=== PATIENT | female | born 1960 | race African-American/Black ===

== ENCOUNTER 2021-04-20 08:30 | Emergency (ER) | payer OTHER, MEDICAID ==
[~2021-04-20] VITALS: Ht 162.6 cm; Wt 97.3 kg
--- NOTE | 2021-04-20 09:21 | PHYS DOC ---
General Adult EDM: Chief Complaint: CHEST PAIN HPI: HPI: Patient is a 60 year old female who presents to the emergency department with chief complaint of intermittent sternal chest pains for the past week. Patient describes pains as [id number] sensation that lasts only a few seconds then goes away. Patient notices mostly in the morning time. Patient reports last chest pain episode was this morning at approximately 3 AM she was watching television. Has not had a recurrence of chest pain episode since 3 AM. Patient denies shortness of breath, chest palpitations, diaphoretic episodes, nausea. Patient denies dizziness, syncopal or near syncopal episodes. Patient does rep ort a past medical history of hypertension and epilepsy. Reports taking hydrochlorothiazide, carvedilol, losartan, amlodipine, Tegretol, phenytoin, patient states she has not taken any medications today prior to arrival to the emergency department. Patient reports a past surgical history of cholecystectomy and hysterectomy 1982. Patient states she sees Dr. Glover at [facility], has an appointment next Tuesday. Patient reports she is a former smoker quit 8 years ago, drinks occasionally stating she had 1 glass of wine last night, denies illicit drug use, denies IV drug use history patient denies other physical complaints or physical concerns. Review of Systems: Review of Systems: 14 body systems of review of systems have been reviewed. See HPI for pertinent positives and negative responses, otherwise all other systems are negative, nonp ertinent or noncontributory. Constitutional: Negative except as outlined in HPI above. Skin: Negative except as outlined in HPI above. Eyes: Negative except as outlined in HPI above. HENT: Negative except as outlined in HPI above. Respiratory: Negative except as outlined in HPI above. Cardiovascular: Negative except as outlined in HPI above. GI: Negative except as outlined in HPI above. : Negative except as outlined in HPI above. Musculoskeletal: Negative except as outlined in HPI above. Integument: Negative except as outlined in HPI above. Neurologic: Negative except as outlined in HPI above. Endocrine: Negative except as outlined in HPI above. Lymphatic: Negative except as outlined in HPI above. Psychiatric: Negative except as outlined in HPI above. Heart Score: C/O Chest Pain: Yes HEART Score for Chest Pain: HEART Score for Chest Pain Response (Comments) Value History Slighlty/Non-Suspicious 0 ECG Normal 0 Age >45 - < 65 1 Risk Factors 1 or 2 Risk Factors 1 Troponin < Normal Limit 0 Total 2 Risk Factors: Risk Factors: DM, Current or recent (<one month) smoker, HTN, HLP, family history of CAD, obesity. Risk Scores: Score 0 - 3: 2.5% MACE over next 6 weeks - Discharge Home Score 4 - 6: 20.3% MACE over next 6 weeks - Admit for Clinical Observation Score 7 - 10: 72.7% MACE over next 6 weeks - Early Invasive Strategies Current Medications: Patient reports home medications of Tegretol 200 mg, phenytoin 100 mg, hydrochlorothiazide 25 mg, carvedilol 18.75 mg, losartan 100 mg, amlodipine 10 mg. Allergies: Allergies: Allergies Coded Allergies Type Severity Reaction Last Updated Verified No Known Drug Allergies 04/20/21 No Physical Exam: PE: Constitutional: Well developed, well nourished, no acute distress, non-toxic appearance. 60-year-old female in no apparent distress. HENT: Normocephalic, atraumatic. Oropharynx moist, pink, no deep tissue infecti ous process appreciated, right TM intact within normal limits, left TM unable to visualize, wax impaction. No lymphadenopathy of the head or neck appreciated. Eyes: Conjunctiva normal, no discharge. Neck: Normal range of motion, no stridor. Cardiovascular: No cyanosis appreciated, distal cap refill less than 2 seconds. Heart sounds S1-S2 to auscultation, regular rate and rhythm. Lungs & Thorax: Patient is in no respiratory distress, no audible adventitious lung sounds appreciated. Lung sounds clear to auscultation all lung marion, normal work of breathing. Abdomen: Nontender, no abnormalities noted. Abdomen soft, round, patient is obese, no abnormal skin discoloration appreciated, old surgical scars. Skin: Warm, dry, no erythema, no rash. Back: No tenderness, no deformities. Extremities: No tenderness, no cyanosis, no clubbing, ROM intact, no edema. Neurologic: Alert and oriented X 3, normal motor function, normal sensory function, no focal deficits noted. Psychologic: Affect normal, judgement normal, mood normal. Current Patient Data: Labs: Laboratory Tests Test 04/20/21 09:13 White Blood Count 8.4 x10^3/uL Red Blood Count 4.42 x10^6/uL Hemoglobin 13.7 g/dL Hematocrit 40.9 % Mean Corpuscular Volume 93 fL Mean Corpuscular Hemoglobin 31 pg Mean Corpuscular Hemoglobin Concent 33 g/dL Red Cell Distribution Width 15.4 % Platelet Count 270 x10^3/uL Neutrophils (%) (Auto) 65 % Lymphocytes (%) (Auto) 27 % Monocytes (%) (Auto) 7 % Eosinophils (%) (Auto) 0 % Basophils (%) (Auto) 1 % Neutrophils # (Auto) 5.4 x10^3/uL Lymphocytes # (Auto) 2.3 x10^3/uL Monocytes # (Auto) 0.6 x10^3/uL Eosinophils # (Auto) 0.0 x10^3/uL Basophils # (Auto) 0.0 x10^3/uL Sodium Level 141 mmol/L Potassium Level 3.3 mmol/L Chloride Level 102 mmol/L Carbon Dioxide Level 28 mmol/L Anion Gap 11 Blood Urea Nitrogen 14 mg/dL Creatinine 0.7 mg/dL Estimated GFR (Cockcroft-Gault) 103.3 BUN/Creatinine Ratio 20 Glucose Level 83 mg/dL Calcium Level 9.2 mg/dL Total Bilirubin 0.2 mg/dL Aspartate Amino Transf (AST/SGOT) 30 U/L Alanine Aminotransferase (ALT/SGPT) 58 U/L Alkaline Phosphatase 104 U/L Troponin I High Sensitivity 5 ng/L [id number] Natriuretic Peptide 162 pg/mL Total Protein 8.6 g/dL Albumin 3.8 g/dL Albumin/Globulin Ratio 0.8 Lipase 38 U/L Current Medications Medications (Trade) Dose Ordered Sig/Harish Route PRN Reason Start Time Stop Time Status Last Admin Dose Admin Hydralazine HCl (Apresoline Inj) 10 mg 1X ONCE IVP 04/20/21 09:30 04/20/21 09:31 DC 04/20/21 09:37 Potassium Chloride (Klor-Con) 20 meq 1X ONCE PO 04/20/21 10:00 04/20/21 10:02 DC 04/20/21 10:08 EKG: EKG: EKG performed at 0 844 by ED nursing staff shows a normal sinus rhythm without other ectopy, AK 0.124, QTc interval 0.438, no acute STEMI, no ACS, no acute ischemia appreciated, EKG interpreted by ED attending physician Dr. Resendiz. This EKG is of poor quality, will order repeat EKG. Repeat EKG performed at 944 by ED nursing staff shows a normal sinus rhythm without other ectopy, AK interval 0.174, QTc interval 0.434, no acute STEMI, no ACS, no acute ischemia appreciated, EKG interpreted by ED attending physician Dr. Resendiz. Radiology/Procedures: Radiology/Procedures: REASON: Chest pain PROCEDURE: CHEST AP ONLY EXAM: Chest, single view. HISTORY: Chest pain. COMPARISON: None. FINDINGS: A frontal view of the chest is obtained. There is lingular and bilateral lower lobe atelectasis or interstitial infiltrate. There is no convincing pleural effusion. There is no pneumothorax. The heart is normal in size. IMPRESSION: Lingular and bilateral lower lobe atelectasis or interstitial infiltrate. Electronically signed by: Eun Gallardo MD (04/20/2021 9:31 AM) [id number] Course & Med Decision Making: Course & Med Decision Making ResolvedPertinent Labs and Imaging studies reviewed. (See chart for details) 60-year-old female, vital signs reviewed, presents emerged from concerning intermittent chest pains for the past week. Physical examination is unremarkable, patient denies current chest pain, will order EKG, chest x-ray, CBC, CMP, high-sensitivity troponin I, NT proBNP, patient does present with noninvasive blood pressure 232/104, has not taken her blood pressure medications today, will give 10 mg hydralazine IV. Left external auditory canal irrigation for wax impaction. Reexamination the left TM is intact and within normal limits, patient reports her left ear feels much better and she can hear much better now that the wax has been removed. Patient is EKG unremarkable, x-ray nonconcerning for acute process, CBC, CMP, high-sensitivity troponin I, NT proBNP nonconcerning. Patient did not have any returning chest pain or discomfort during her ER stay. Patient's chest pain was nonreproducible, there is a suspicion for gastric reflux however there was no pain or discomfort during today's ED visit, the patient does not have gallbladder, low suspicion for pancreatitis, the patient's lipase within normal limits, patient denies being an alcohol drinker, the patient's hypertensive presentation did with IV hydralazine, discussed with patient strict follow-up appointment with primary care this coming Jeff, strict return to ER precautions and concerns. Patient gave verbal understanding of and is amenable to ED discharge planning. Discussed with the patient all findings and diagnostic testing as well as the need to follow-up with their primary care provider for further evaluation and treatment or return to the ED if any new or worsening symptoms. Strict return precautions were also discussed at length, the patient voiced understanding and agreement with the discharge planning. The patient was nontoxic in appearance, in no apparent distress, and hemodynamically stable at the time of disposition. [place] Disclaimer: Draggary Disclaimer: This electronic medical record was generated, in whole or in part, using a voice recognition dictation system. Departure Departure Impression: Primary Impression: Chest pain Qualified Codes: R07.9 - Chest pain, unspecified Additional Impressions: Cerumen impaction Qualified Codes: H61.22 - Impacted cerumen, left ear Hypertension Qualified Codes: I10 - Essential (primary) hypertension Disposition: HOME / SELF CARE / HOMELESS Condition: GOOD Patient Instructions: Chest Pain (Nonspecific) Additional Instructions: You were seen today in emergency department for intermittent chest pains, you also had high blood pressure of 232/104 when you arrived to the emergency department, he also had an earwax impaction of the left ear. The EKG and chest x-ray along with your lab work did not show any concerning findings that would warrant admission to the hospital or immediate attention by a cardiology or patient access specialist. Your earwax was removed with irrigation, your tympanic membrane and eardrum were within normal limits. Your blood pressure did come down after receiving a small dose of blood pressure medication hydralazine 10 mg intravenously. You did not have any return of chest pain or discomfort during your emergency department stay. It is very important that you keep your follow- up appointment with Dr. Patrick guthrie this coming Tuesday. Make sure you tell Dr. Glover of your emergency department visit today at [facility] so they may obtain copies of your lab work EKG and x-rays. Please return immediately to the emergency department for any return of chest pain or shortness of breath or other concerns. Thank you for visiting our Emergency Department. It was a pleasure taking care of you today in the emergency department and we appreciate you trusting us with your care. If any additional problems come up don't hesitate to return to visit us. Please follow up with your primary care provider so they can plan additional care if needed and know about the problem that you had. If symptoms worsen come back to the Emergency Department. Any concerning symptoms that start such as chest pain, shortness of air, weakness or numbness on one side of the body, running high fevers or any other concerning symptoms return to the ER. EMERGENCY DEPARTMENT GENERAL DISCHARGE INSTRUCTIONS Thank you for coming to [facility] Emergency Department (ED) today and trusting us with you care. We trust that you had a positive experience in our Emergency Department. If you wish to speak to the department management, you may call the Director at [phone]. YOUR FOLLOW UP INSTRUCTIONS ARE FOLLOWS: 1. Do you have a private Doctor? If you do not have a private doctor, please ask for a resource list of physicians or clinics that may be able to assist you with follow up care. 2. The Emergency Physicain has interpreted your x-rays. The X-Ray specialist will also review them. If there is a change in the findings, you will be notified in 48 hours when at all possible. 3. A lab test or culture has been done, your results will be reviewed and you will be notified if you need a change in treatment. ADDITIONAL INSTRUCTIONS AND INFORMATION: 1. Your care today has been supervised by a physician who is specially trained in emergency care. Many problems require more than one evaluation for a complete diagnosis and treatment. We recommend that you schedule your follow up appointment as recommended to ensure complete treatment of you illness or injury. If you are unable to obtain follow up care and continue to have a problem, or if your condition worsens, we recommend that you return to the ED. 2. We are not able to safely determine your condition over the phone nor are we able to give sound medical advice over the phone. For these safety reasons, if you call for medical advice we will ask you to come to the ED for further evaluation. 3. If you have any questions regarding these discharge instructions please call the ED at [phone]. SAFETY INFORMATION: In the interest of safety, wellness, and injury prevention; we encourage you to wear your sealbelt, if you smoke; quite smoking, and we encourage family to use a protective helmet for bicycling and other sporting events that present an increased risk for head injury. IF YOUR SYMPTOMS WORSEN OR NEW SYMPTOMS DEVELOP, OR YOU HAVE CONCERNS ABOUT YOUR CONDITION; OR IF YOUR CONDITION WORSENS WHILE YOU ARE WAITING FOR YOUR FOLLOW UP APPOINTMENT; EITHER CONTACT YOUR PRIMARY CARE DOCTOR, THE PHYSICIAN WHOSE NAME AND NUMBER YOU WERE GIVEN, OR RETURN TO THE ED IMMEDIATELY. DONTE GOMEZ APRN Apr 20, 2021 09:21
[2021-04-20] MEDS ORDERED: hydrALAZINE 20 MG/ML VIAL. IVP ONE (09:30)
--- NOTE | 2021-04-20 09:33 | RAD ---
EXAM: Chest, single view. HISTORY: Chest pain. COMPARISON: None. FINDINGS: A frontal view of the chest is obtained. There is lingular and bilateral lower lobe atelect asis or interstitial infiltrate. There is no convincing pleural effusion. There is no pneumothorax. T he heart is normal in size. IMPRESSION: Lingular and bilateral lower lobe atelectasis or interstitial infiltrate. Electronically signed by: Eun Gallardo MD (04/20/2021 9:31 AM) [id number]
[2021-04-20 09:41] LABS: CALCIUM 9.2 mg/dL (8.5-10.1); CREATININE 0.7 mg/dL (0.6-1.0); GFR 103.3; POTASSIUM 3.3 mmol/L (3.5-5.1)
[2021-04-20 09:47] LABS: ALBUMIN 3.8 g/dL (3.4-5.0); ALBUMIN/GLOBULIN RATIO 0.8 (1.0-1.7); TOTAL BILIRUBIN 0.2 mg/dL (0.2-1.0); TOTAL PROTEIN 8.6 g/dL (6.4-8.2)
[2021-04-20 09:55] LABS: BASO % 1 % (0-3); EOS % 0 % (0-3); HEMATOCRIT 40.9 % (36.0-47.0); HEMOGLOBIN 13.7 g/dL (12.0-15.5); LYMPH # 2.3 x10^3/uL (1.0-4.8); LYMPH % 27 % (24-48); MEAN CORPUSCULAR HEMOGLOBIN 31 pg (25-35); MEAN CORPUSCULAR HGB CONC 33 g/dL (31-37); MEAN CORPUSCULAR VOLUME 93 fL (79-100); MONO # 0.6 x10^3/uL (0.0-1.1); MONO % 7 % (0-9); NEUT # 5.4 x10^3/uL (1.8-7.7); NEUT % 65 % (31-73); PLATELET COUNT 270 x10^3/uL (140-400); RED BLOOD COUNT 4.42 x10^6/uL (3.50-5.40); RED CELL DISTRIBUTION WIDTH 15.4 % (11.5-14.5); WHITE BLOOD COUNT 8.4 x10^3/uL (4.0-11.0)
[2021-04-20] MEDS ORDERED: POTASSIUM CHLORIDE 20 MEQ TABLET.ER. PO ONE (10:00)
[2021-04-20 12:15] VITALS: BP 202/91
--- NOTE | 2021-04-21 03:44 | EKG ---
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
--- NOTE | 2021-04-21 03:45 | EKG ---
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
== END 2021-04-20 12:18 | disposition home or self-care (01) ==
LOC: ER 08:30
DX: R07.2 Precordial pain (principal); H61.22 Impacted cerumen, left ear; I10 Essential (primary) hypertension; G40.909 Epilepsy, unspecified, not intractable, without status epilepticus; Z87.891 Personal history of nicotine dependence
CPT/HCPCS: 36415; 71045; 80053; 83690; 83880; 84484; 85025; 93005; 96374; 99285; J0360